=== PATIENT | female | born 1985 | race Caucasian/White ===

== ENCOUNTER 2022-02-16 08:55 | Outpatient (CLI) | payer BC, SELFPAY ==
--- NOTE | 2022-02-19 12:52 | WPDHOLTEREM ---
Holter/Event Monitor Holter/Event Monitor Date of procedure: 02/16/22 Holter/Event Procedure: 48 Hr Holter Monitor Indications: Family history of genetic cardiomyopathy Conclusion: 1. 48 hour holter monitor on 02/16/22. 2. Underlying rhythm is sinus rhythm. HR range 57-179 bpm; average HR 95 bpm. 3. There are 4 premature supraventricular complexes. No supraventricular tachycardia. 4. There are 15 premature ventricular complexes. No ventricular tachycardia. 5. No sinoatrial or atrioventricular blocks. No significant pauses greater than 2 seconds. 6. Patient reports symptoms of shortness of breath, fluttering, lightheadedness which demonstrate sinus rhythm, HR range 86-132 bpm.
== END 2022-02-16 08:56 | disposition home or self-care (01) ==
PROVIDERS: PCP Family Medicine; Visit Provider Family Medicine
DX: I49.9 Cardiac arrhythmia, unspecified (principal)
CPT/HCPCS: 93225; 93226

== ENCOUNTER → 2023-06-26 14:09 | Emergency (ER) | payer BC, SELFPAY | END | disposition left against medical advice (07) | PROVIDERS: Emergency Provider Nurse Practitioner; PCP Family Medicine | DX: Z53.21 Procedure and treatment not carried out due to patient leaving prior to being seen by health care provider (principal) | CPT/HCPCS: 99199 ==

== ENCOUNTER 2024-12-03 18:15 | Emergency (ER) | payer BC, SELFPAY ==
[2024-12-03 18:21] VITALS: BP 133/96; PULSE 96; RESP 18; TEMP 36.3; O2SAT 100
--- NOTE | 2024-12-03 18:32 | ED.ANIMALBIT ---
HPI - Animal Bite General Chief Complaint: Animal Bite Stated Complaint: Tick Bite/Rash/Body aches Source: patient Mode of arrival: ambulatory Limitations: no limitations History of Present Illness HPI narrative: Patient is a 39 year old female who presents to the clinic for complaints of a tick bite to her right upper thigh. She is unaware of how long the tick was attached to her skin, but she pulled it off yesterday. She states that there is erythema and edema to the area. She is experiencing some body aches. Denies fevers, nausea, vomiting, or diarrhea. Related Data Home Medications ?Medication ?Instructions ?Recorded ?Confirmed ?Last Taken ?Type albuterol sulfate 90 mcg/actuation 2 puff inhalation PRN wheezing 12/03/24 12/03/24 Unknown History aerosol inhaler buspirone 5 mg tablet 5 mg PO PRN anxiety 12/03/24 12/03/24 Unknown History drospirenone (contraceptive) 4 mg 1 tablet PO DAILY 12/03/24 12/03/24 Unknown History (28) tablet (Slynd) fluticasone furoate 200 1 inh inhalation Q24H PRN wheezing 12/03/24 12/03/24 Unknown History mcg-vilanterol 25 mcg/dose inhalation powder (Breo Ellipta) Allergies Allergy/AdvReac Type Severity Reaction Status Date / Time Penicillins Allergy Intermediate Hives / Verified 12/03/24 18:27 Red Face Review of Systems Review of Systems: CONSTITUTIONAL: Denies fever, chills, or sweats. Reports body aches. EYES: Denies visual changes, redness, or discharge. ENT: Denies rhinorrhea, congestion CARDIOVASCULAR: Denies chest pain, palpitations, or edema. RESPIRATORY: Denies cough or dyspnea. GASTROINTESTINAL: Denies abdominal pain, nausea, vomiting, or diarrhea. SKIN: ?Reports tick bite to her right upper thigh. MUSCULOSKELETAL: Denies back pain, joint pain, or myalgia. NEUROLOGIC: Denies headache, numbness, tingling, or weakness. All systems reviewed & are unremarkable except as noted in HPI and below PMFSH Comments At time of signature, I have reviewed and agree with nursing past medical, surgical, social and family history unless otherwise noted. Please see nursing chart for further information. There is no relevant family history pertinent to the presenting complaint. Exam Narrative: GENERAL: Well-appearing HEAD: Normocephalic, atraumatic. EYES: ?conjunctivae clear, and EOMI. ENT: Mucous membranes moist. Oropharynx without edema, erythema or lesions. NECK: Supple. No lymphadenopathy CHEST: Clear to auscultation. HEART: Regular rate and rhythm. SKIN: Warm, dry. ?6 cm x 3 cm area of erythema noted to right upper thigh. NEURO: ?Alert and oriented x3.? Course Course Level of Care: Express Care Visit Vital Signs Vital signs: Vital Signs Temperature 97.4 F L 12/03/24 18:21 Pulse Rate 96 12/03/24 18:21 Respiratory Rate 18 12/03/24 18:21 Blood Pressure 133/96 H 12/03/24 18:21 Pulse Oximetry 100 12/03/24 18:21 Oxygen Delivery Room Air 12/03/24 18:21 Temperature 97.4 F L 12/03/24 18:21 Pulse Rate 96 12/03/24 18:21 Respiratory Rate 18 12/03/24 18:21 Blood Pressure 133/96 H 12/03/24 18:21 Pulse Oximetry 100 12/03/24 18:21 Oxygen Delivery Room Air 12/03/24 18:21 Reviewed MDM - Animal Bite MDM Narrative Medical decision making narrative: Discussed physical exam findings. Antibiotic given for Lyme Disease prevention. Advised supportive measures and signs/symptoms to go to the ER. Pt is appropriate for outpatient treatment and follow up. Differential Diagnosis Differential diagnosis: Likely other (tick bite, Lyme disease) Critical Care Time Critical Care Time Critical Care Time: No Discharge Plan Discharge Clinical Impression: Tick bite Patient Disposition: Home Condition: Stable Instructions: Antibiotic Form, Tick Bite (ED) Additional Instructions: Take the antibiotic as directed Keep site clean and dry For 30 days following the tick bite Watch for: Signs of infection including Increased pain, swelling, warmth, bite red streaks bleeding from the bite or pus draining from the bite. Fever. New rash, especially a bull?s eye appearance which is a characteristic of Lyme disease, or any rash that expands from the site. Flu like symptoms including fevers, chills, body aches, fatigue or headache. If you think the tick was attached for over 30 hours, especially deer tick, go to the emergency room Minor redness or swelling at the site of the tick bite is often a normal reaction and should subside within a few days. Follow up with your primary care provider as needed in 1 week Go to the ER for worsening symptoms or concerns Patient Language: [place] Island[place] Prescriptions: New doxycycline hyclate 100 mg tablet 100 mg PO BID 10 Days Qty: 20 0RF No Action Slynd 4 mg (28) tablet 1 tablet PO DAILY albuterol sulfate 90 mcg/actuation HFA aerosol inhaler 2 puff INHALATION PRN buspirone 5 mg tablet 5 mg PO PRN fluticasone furoate-vilanterol [Breo Ellipta] 200-25 mcg/dose blister with device 1 inh INHALATION Q24H PRN (Reason: wheezing) Follow-up/Referrals: PHYSICIAN,[employer]ATELL[employer] IN[employer]ATION TECHNICIAN [Primary Care Provider] - Stand Alone Forms: Work/School Release IP Time of Disposition: 18:44
== END 2024-12-03 18:46 | disposition home or self-care (01) ==
DX: S70.361A Insect bite (nonvenomous), right thigh, initial encounter (principal); W57.XXXA Bitten or stung by nonvenomous insect and other nonvenomous arthropods, initial encounter; J45.909 Unspecified asthma, uncomplicated; F41.9 Anxiety disorder, unspecified
CPT/HCPCS: 99213; G0463